=== PATIENT | female | born 1970 | race Caucasian/White ===

== ENCOUNTER 2016-12-08 09:08 | Emergency (ER) | payer SELFPAY ==
[2016-12-08 09:14] VITALS: BP 136/94
[2016-12-08] MEDS ORDERED: Ondansetron 4 MG/2 ML SDV IVPUSH STA ×2 (09:47→10:58)
[2016-12-08] MEDS ORDERED: Morphine 4 MG/ML Syringe IVPUSH ONE ×2 (09:47→10:58)
[2016-12-08] MEDS ORDERED: Sodium Chloride 0.9% 1,000 ML IV ONE (09:49)
[2016-12-08 09:52] LABS: CHLORIDE,CL 103 mEq/L (98-106); SODIUM,NA 141 mEq/L (136-145)
--- NOTE | 2016-12-08 09:59 | EDM.PDOC ---
[id number]: RLQ PAIN Time Seen by Provider: 12/08/16 09:46 Source of Information: Reports: Patient History Limitations: Reports: No Limitations - History of Present Illness INITIAL COMMENTS - FREE TEXT/NARRATIVE: This patient is a 46 year old female that presents to the ER. Patient reports that for the last 2 days she has had RUQ, RLQ abdominal pain. She reports that she was at work today and the pain became worse. She reports that the pain was so bad that she passed out. The patient reports that she has had some nausea and mild diarrhea. The patient reports that she has a history of Chrons and has not taken her prescribed steroids n about 2 months because of no insurance. The patient reports that she has also had a history of obstruction and intussusception. The patient reports this feels more like a Chrons flar up. The patient is fully alert and oriented. The patient denies wanting a CT of her head. Onset Date: 12/06/16 Duration: Day(s): (2) Location: Reports: Abdomen Front/Back Body Image: 1 - andino, tenderness. Severity: Moderate Improves with: Reports: None Worsens with: Reports: None Associated Symptoms: Reports: Loss of Appetite, Nausea/Vomiting, Syncope. Denies: Confusion, Chest Pain, Cough, cough w sputum, Diaphoresis, Fever/Chills , Headaches, Malaise, Rash, Seizure, Shortness of Breath, Weakness Right Lower Abdomen Pain Score (Numeric/FACES): 10 - Related Data Allergies Allergy/AdvReac Type Severity Reaction Status Date / Time diphenhydramine Allergy Hives Verified 12/08/16 09:10 [From Benadryl] ketorolac [From Toradol] Allergy Irritabilit Verified 12/08/16 09:10 y Home Meds: Home Meds Ferrous Sulfate [Iron] 325 mg PO TID 12/08/16 [History] LORazepam [Ativan] 0.5 mg PO Q6H PRN 12/08/16 [History] rOPINIRole HCl [Requip] 1 mg PO BEDTIME 12/08/16 [History] Past Medical History 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 History: Reports: Bowel Obstruction, Other (See Below) Other 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 History: 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: Psychiatric History: Reports: Anxiety - Past Surgical History GI Surgical History: Reports: Appendectomy, Cholecystectomy, Other (See Below) Other GI Surgeries/Procedures: BOWEL RESECTIONS X2, GASTRIC BYPASS Social & Family History - Family History Family Medical History: Noncontributory - Tobacco Use Smoking Status *Q: Current Every Day Smoker Years of Tobacco use: 20 Packs/Tins Daily: 1 - Caffeine Use Caffeine Use: Reports: Coffee - Recreational Drug Use Recreational Drug Use: No ED ROS GENERAL - Review of Systems Review Of Systems: See Below Constitutional: Reports: No Symptoms HEENT: Reports: No Symptoms Respiratory: Reports: No Symptoms Cardiovascular: Reports: No Symptoms Endocrine: Reports: No Symptoms GI/Abdominal: Reports: Abdominal Pain, Diarrhea, Nausea. Denies: Vomiting : Reports: No Symptoms Musculoskeletal: Reports: No Symptoms Skin: Reports: No Symptoms Neurological: Reports: Syncope (due to pain per patient. ). Denies: Headache Psychiatric: Reports: No Symptoms Hematologic/Lymphatic: Reports: No Symptoms Immunologic: Reports: No Symptoms ED EXAM, GI/ABD - Physical Exam Exam: See Below Exam Limited By: No Limitations General Appearance: Alert, WD/WN, No Apparent Distress Eyes: Bilateral: Normal Appearance, EOMI Ears: Normal External Exam, Normal Canal, Hearing Grossly Normal, Normal TMs Nose: Normal Inspection, Normal Mucosa, No Blood Throat/Mouth: Normal Inspection, Normal Lips, Normal Teeth, Normal Gums, Normal Oropharynx, Normal Voice, No Airway Compromise Head: Atraumatic, Normocephalic. No: Facial Swelling, Facial Tenderness, Sinus Tenderness Neck: Normal Inspection, Supple, Non-Tender, Full Range of Motion Respiratory/Chest: No Respiratory Distress, Lungs Clear, Normal Breath Sounds, No Accessory Muscle Use Cardiovascular: Normal Peripheral Pulses, Regular Rate, Rhythm, No Edema, No Gallop, No JVD, No Murmur, No Rub GI/Abdominal: Normal Bowel Sounds, Soft, No Organomegaly, No Distention, No Abnormal Bruit, No Mass, Pelvis Stable, Tenderness (RUQ, RLQ. ). No: Guarding, Rebound, Rigidity Back Exam: Normal Inspection, Full Range of Motion. No: CVA Tenderness (L), CVA Tenderness (R) Extremities: Normal Inspection, Normal Range of Motion, Non-Tender, No Pedal Edema, Normal Capillary Refill Neurological: Alert, Oriented, CN II-XII Intact, No Motor/Sensory Deficits Psychiatric: Normal Affect, Normal Mood Skin Exam: Warm, Dry, Intact, Normal Color, No Rash Lymphatic: No Adenopathy EKG INTERPRETATION EKG Date: 12/08/16 Time: 09:31 Rhythm: NSR Rate (beats/min): 61 [place]: normal P-wave: present QRS: normal ST-T: normal QT: normal Comparison: NA - no prior EKG Course - Vital Signs Last Recorded V/S: Last Vital Signs Temp 96.7 F 12/08/16 09:11 Pulse 73 12/08/16 09:11 Resp 18 12/08/16 09:11 BP 136/94 H 12/08/16 09:11 Pulse Ox 97 12/08/16 09:11 - Orders/Labs/Meds Labs: Laboratory Tests 12/08/16 12/08/16 12/08/16 Range/Units 09:22 09:22 09:22 WBC 11.2 H (5.0-10.0) 10^3/uL RBC 4.39 (4.00-5.50) 10^6/uL Hgb 11.1 L (12.0-16.0) g/dL Hct 35.1 L (37.0-47.0) % MCV 80.0 L (82.0-94.0) fL MCH 25.3 L (27.0-32.0) pg MCHC 31.6 L (33.0-38.0) g/dL RDW Coeff of Jessa 15.5 H (11.0-15.0) % Plt Count 362 (150-400) 10^3/uL Neut % (Auto) 56.9 (35-85) % Lymph % (Auto) 31.9 (10-55) % [place] % (Auto) 8.7 (0-16) % Eos % (Auto) 2.3 (0-5) % Baso % (Auto) 0.2 (0-3) % Neut # (Auto) 6.35 (1.80-7.00) 10^3/uL Lymph # (Auto) 3.56 (1.00-4.80) 10^3/uL [place] # (Auto) 0.97 H (0.00-0.80) 10^3/uL Eos # (Auto) 0.26 (0.00-0.45) 10^3/uL Baso # (Auto) 0.02 10^3/uL Sodium 141 (136-145) mEq/L Potassium 3.8 (3.5-5.0) mEq/L Chloride 103 (98-106) mEq/L Carbon Dioxide 30 (21-32) mmol/L BUN 12 (7-18) mg/dL Creatinine 0.7 (0.6-1.0) mg/dL Est Cr Clr Drug Dosing 88.56 mL/min Estimated GFR (MDRD) > 60 (>=60) mL/min Glucose 96 (75-99) mg/dL Calcium 8.3 L (8.4-10.1) mg/dL Total Bilirubin 0.3 (0.0-1.0) mg/dL AST 17 (15-37) U/L ALT 19 (12-78) U/L Alkaline Phosphatase 88 (46-116) U/L Creatine Kinase 83 (21-215) U/L Troponin I < 0.017 (0.00-0.06) ng/mL Total Protein 7.2 (6.4-8.2) g/dL Albumin 3.2 L (3.4-5.0) g/dL Urine Color (YELLOW) Urine Appearance (CLEAR) Urine pH (4.5-8.0) Ur Specific [place] (1.003-1.020) Urine Protein (NEGATIVE) mg/dL Urine Glucose (UA) (NEGATIVE) mg/dL Urine Ketones (NEGATIVE) mg/dL Urine Occult Blood (NEGATIVE) Urine Nitrite (NEGATIVE) Urine Bilirubin (NEGATIVE) Urine Urobilinogen (0.2-1.0) EU/dL Ur Leukocyte Esterase (NEGATIVE) Urine RBC (0-5) /HPF Urine WBC (0-5) /HPF Urinalysis Comment Urine HCG, Qual Negative 12/08/16 Range/Units 09:22 WBC (5.0-10.0) 10^3/uL RBC (4.00-5.50) 10^6/uL Hgb (12.0-16.0) g/dL Hct (37.0-47.0) % MCV (82.0-94.0) fL MCH (27.0-32.0) pg MCHC (33.0-38.0) g/dL RDW Coeff of Jessa (11.0-15.0) % Plt Count (150-400) 10^3/uL Neut % (Auto) (35-85) % Lymph % (Auto) (10-55) % [place] % (Auto) (0-16) % Eos % (Auto) (0-5) % Baso % (Auto) (0-3) % Neut # (Auto) (1.80-7.00) 10^3/uL Lymph # (Auto) (1.00-4.80) 10^3/uL [place] # (Auto) (0.00-0.80) 10^3/uL Eos # (Auto) (0.00-0.45) 10^3/uL Baso # (Auto) 10^3/uL Sodium (136-145) mEq/L Potassium (3.5-5.0) mEq/L Chloride (98-106) mEq/L Carbon Dioxide (21-32) mmol/L BUN (7-18) mg/dL Creatinine (0.6-1.0) mg/dL Est Cr Clr Drug Dosing mL/min Estimated GFR (MDRD) (>=60) mL/min Glucose (75-99) mg/dL Calcium (8.4-10.1) mg/dL Total Bilirubin (0.0-1.0) mg/dL AST (15-37) U/L ALT (12-78) U/L Alkaline Phosphatase (46-116) U/L Creatine Kinase (21-215) U/L Troponin I (0.00-0.06) ng/mL Total Protein (6.4-8.2) g/dL Albumin (3.4-5.0) g/dL Urine Color Yellow (YELLOW) Urine Appearance Clear (CLEAR) Urine pH 6.0 (4.5-8.0) Ur Specific [place] 1.023 H (1.003-1.020) Urine Protein Negative (NEGATIVE) mg/dL Urine Glucose (UA) Negative (NEGATIVE) mg/dL Urine Ketones Negative (NEGATIVE) mg/dL Urine Occult Blood Negative (NEGATIVE) Urine Nitrite Negative (NEGATIVE) Urine Bilirubin Negative (NEGATIVE) Urine Urobilinogen 1.0 (0.2-1.0) EU/dL Ur Leukocyte Esterase Negative (NEGATIVE) Urine RBC Not seen (0-5) /HPF Urine WBC 0-5 (0-5) /HPF Urinalysis Comment Urine HCG, Qual Meds: Medications Discontinued Medications Generic Name Dose Route Start Last Admin Trade Name Adele PRN Reason Stop Dose Admin Hydrocodone Bitart/Acetaminophen 3 packet 12/08/16 10:59 12/08/16 11:19 Take Home: Acetaminophen/Hydrocod, 2 Tab Pack PO 12/08/16 11:00 3 packet ONETIME ONE Administration Sodium Chloride 1,000 mls @ 1,000 mls/hr 12/08/16 09:49 12/08/16 09:53 Normal Saline IV 12/08/16 10:48 1,000 mls/hr .BOLUS ONE Administration Iopamidol 100 ml 12/08/16 10:09 12/08/16 10:21 Isovue-300 (61%) IVPUSH 12/08/16 10:10 100 ml ONETIME ONE Administration Methylprednisolone Sodium Succinate 62.5 mg 12/08/16 10:58 12/08/16 11:12 Solu-Medrol IVPUSH 12/08/16 10:59 62.5 mg NOW STA Administration Morphine Sulfate 4 mg 12/08/16 09:47 12/08/16 09:52 Morphine IVPUSH 12/08/16 09:48 4 mg ONETIME ONE Administration Morphine Sulfate 4 mg 12/08/16 10:58 12/08/16 11:11 Morphine IVPUSH 12/08/16 10:59 4 mg ONETIME ONE Administration Ondansetron HCl 4 mg 12/08/16 09:47 12/08/16 09:52 Zofran IVPUSH 12/08/16 09:48 4 mg NOW STA Administration Ondansetron HCl 4 mg 12/08/16 10:58 12/08/16 11:11 Zofran IVPUSH 12/08/16 10:59 4 mg NOW STA Administration - Radiology Interpretation Free Text/Narrative:: Abd/Pelvis with contrast: Discussed with radiologist; no acute findings. - Re-Assessments/Exams Free Text/Narrative Re-Assessment/Exam: 12/08/16 10:58 I will give the patient steroids since she has not had them due to not filling for Chrones. Departure - Departure Time of Disposition: 10:53 Disposition: Home, Self-Care 01 Condition: good Clinical Impression: Abdominal pain Qualifiers: Abdominal location: right upper quadrant Qualified Code(s): R10.11 - Right upper quadrant pain - Discharge Information Instructions: Abdominal Pain, Adult, [id number] Referrals: Mando Ruiz MD [Family Provider] - Forms: ED Department Discharge Additional Instructions: Followup with your primary care provider Return to the ER for worsening of condition or any emergent concerns Increase fluids Prednisone 20mg 1 pill twice a day for 5 days #10 no refill [place] 5/325mg 1-2 pills every 4-6 hours as needed for pain #6 Take Home - Assessment/Plan Plan: PLEASE SEE RN NOTE FOR PFSH.
[2016-12-08] MEDS ORDERED: Acetaminophen/HYDROcodone 325-5 MG Tab PO ONE (10:00)
[2016-12-08] MEDS ORDERED: Iopamidol 612 MG/ML 100 ML Bottle IVPUSH ONE (10:09)
[2016-12-08] MEDS ORDERED: methylPREDNISolone Sodium Succinate 125 MG/2 ML SDV IVPUSH STA (10:58)
[2016-12-08] MEDS ORDERED: Take Home: Acetaminophen/HYDROcodone 325-5 MG, 2 Tab Pack PO ONE (10:59)
== END 2016-12-08 11:40 | disposition home or self-care (01) ==
LOC: CC.ED 09:08
DX: R10.11 Right upper quadrant pain (principal); F41.9 Anxiety disorder, unspecified; F17.210 Nicotine dependence, cigarettes, uncomplicated; Z88.8 Allergy status to other drugs, medicaments and biological substances; Z90.49 Acquired absence of other specified parts of digestive tract; Z98.84 Bariatric surgery status; Z98.890 Other specified postprocedural states
CPT/HCPCS: 36415; 74177; 80053; 81001; 81025; 82550; 84484; 85025; 93005; 96361; 96374; 96375; 96376; 99284; A9270; J2270; J2405; J2930; J7030; Q9967

== ENCOUNTER 2017-03-23 16:57 | Emergency (ER) | payer BC ==
[2017-03-23] MEDS ORDERED: traMADol 50 MG Tab PO ONE (16:58)
--- NOTE | 2017-03-23 17:16 | EDM.PDOC ---
ED HPI GENERAL MEDICAL PROBLEM - General Chief Complaint: Abdominal Pain Stated Complaint: "Having abdominal Pain" Time Seen by Provider: 03/23/17 17:15 Source of Information: Reports: Patient History Limitations: Reports: No Limitations - History of Present Illness INITIAL COMMENTS - FREE TEXT/NARRATIVE: Patient states RLQ for 1 week with diarrhea and pain. She states she noted some dark stools with bright red bleeding which resolved after 3 days. She affirms food makes pain worse nothing help make it better. 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 She thus presented for evaluation after co worker brought her to ER. Patient states long history of GI problems including Gastric Bypass in 2006 followed by Intussception x2 and resection of Large bowel for Crohns in 2009. She states she had been seeing GI specilaty but since moving has not followed up with GI Specialty. Current MD in [place] is Dr. Ruiz. 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 TECHNICIAN: Reports: Home Treatments Right Lower Anterior Abdomen Pain Score (Numeric/FACES): 8 - Related Data Allergies Allergy/AdvReac Type Severity Reaction Status Date / Time diphenhydramine Allergy Hives Verified 03/23/17 18:29 [From Benadryl] ketorolac [From Toradol] Allergy Irritabilit Verified 03/23/17 18:29 y Home Meds: Home Meds Ferrous Sulfate [Iron] 325 mg PO TID 12/08/16 [History] LORazepam [Ativan] 0.5 mg PO Q6H PRN 12/08/16 [History] rOPINIRole HCl [Requip] 1 mg PO BEDTIME 12/08/16 [History] Past Medical History 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 History: Reports: Bowel Obstruction, Inflammatory Bowel Disease , PUD, Other (See Below) Other 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 History: CHROHNS Genitourinary History: Reports: None 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: 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, Polycystic Ovaries, : 2 Para: 2 LMP (Approximate): Menopausal (Age 44 years) Musculoskeletal History: Reports: None Neurological History: Reports: None Psychiatric History: Reports: Anxiety Endocrine/Metabolic History: Reports: None, Other (See Below) (Obesity with gastric Bypass surgery in 2007) Hematologic History: Reports: Iron Deficiency - Past Surgical History GI Surgical History: Reports: Appendectomy, Cholecystectomy, Other (See Below) Other GI Surgeries/Procedures: BOWEL RESECTIONS X2, GASTRIC BYPASS Social & Family History - Family History Family Medical History: Noncontributory - Tobacco Use Smoking Status *Q: Current Every Day Smoker Years of Tobacco use: 20 Packs/Tins Daily: 1 - Caffeine Use Caffeine Use: Reports: Coffee - Alcohol Use Alcohol Use Frequency: Rarely - Recreational Drug Use Recreational Drug Use: No - Living Situation & Occupation Occupation: Employed ED ROS GENERAL - Review of Systems Review Of Systems: See Below Constitutional: Reports: Weakness, Fatigue, Night Sweats HEENT: Reports: Other (Tinnitis) Respiratory: Reports: No Symptoms Cardiovascular: Reports: No Symptoms Endocrine: Reports: No Symptoms GI/Abdominal: Reports: Abdominal Pain, Bloody Stool, Diarrhea, Distension, Melena, Nausea : Reports: No Symptoms Musculoskeletal: Reports: No Symptoms Skin: Reports: No Symptoms Neurological: Reports: No Symptoms Psychiatric: Reports: Anxiety Hematologic/Lymphatic: Reports: Anemia, Other (Bypass surgery) Immunologic: Reports: No Symptoms ED EXAM, GI/ABD - Physical Exam Exam: See Below Exam Limited By: No Limitations General Appearance: Alert, WD/WN, Anxious, Moderate Distress Eyes: Bilateral: Normal Appearance, EOMI Ears: Normal External Exam, Normal Canal, Hearing Grossly Normal, Normal TMs Nose: Normal Inspection, Normal Mucosa, No Blood Throat/Mouth: Normal Inspection, Normal Lips, Normal Teeth, Normal Gums, Normal Oropharynx, Normal Voice, No Airway Compromise Head: Atraumatic, Normocephalic Neck: Normal Inspection, Supple, Non-Tender, Full Range of Motion Respiratory/Chest: No Respiratory Distress, Lungs Clear, Normal Breath Sounds, No Accessory Muscle Use, Chest Non-Tender Cardiovascular: Normal Peripheral Pulses, Regular Rate, Rhythm, No Edema, No JVD GI/Abdominal Exam: Normal Bowel Sounds, Distended, Tender. No: Rebound, Hernia , Mass, Hepatomegaly (Female) Exam: Deferred Rectal (Female) Exam: Deferred Back Exam: Normal Inspection, Full Range of Motion Extremities: Normal Inspection, Normal Range of Motion, Non-Tender, No Pedal Edema, Normal Capillary Refill Neurological: Alert, Oriented, CN II-XII Intact, Normal Cognition, Normal Gait, Normal Reflexes, No Motor/Sensory Deficits Psychiatric: Anxious, Tearful Skin Exam: Warm, Dry, Intact, Normal Color Lymphatic: No Adenopathy Course - Vital Signs Last Recorded V/S: Last Vital Signs Temp 36.3 C 03/23/17 18:25 Pulse 65 03/23/17 18:25 Resp 20 03/23/17 18:25 BP 130/98 H 03/23/17 18:25 Pulse Ox 98 03/23/17 18:25 - Orders/Labs/Meds Orders: Active Orders 24 hr Category Date Time Status Abdomen Pelvis w Cont [CT] Stat Exams 03/23/17 17:13 Taken STOOL CULTURE [MREF] Stat Lab 03/23/17 19:17 Uncollected Promethazine [Phenergan] 25 mg Med 03/23/17 18:11 Active Sodium Chloride 0.9% [Normal Saline] 50 ml IV Q6H Sodium Chloride 0.9% [Normal Saline] 1,000 ml Med 03/23/17 18:00 Active IV ASDIRECTED Medication Orders Sodium Chloride (Normal Saline) 1,000 mls @ 150 mls/hr IV ASDIRECTED NIKKO Last Admin: 03/23/17 18:01 Dose: 150 mls/hr Promethazine HCl 25 mg/ Sodium (Chloride) 51 mls @ 100 mls/hr IV Q6H PRN PRN Reason: Nausea Last Admin: 03/23/17 18:19 Dose: 100 mls/hr Labs: Laboratory Tests 03/23/17 03/23/17 03/23/17 Range/Units 17:45 17:45 17:54 WBC 9.3 (5.0-10.0) 10^3/uL RBC 4.92 (4.00-5.50) 10^6/uL Hgb 12.0 (12.0-16.0) g/dL Hct 37.7 (37.0-47.0) % MCV 76.6 L (82.0-94.0) fL MCH 24.4 L (27.0-32.0) pg MCHC 31.8 L (33.0-38.0) g/dL RDW Coeff of Jessa 17.2 H (11.0-15.0) % Plt Count 281 (150-400) 10^3/uL Neut % (Auto) 52.8 (35-85) % Lymph % (Auto) 35.4 (10-55) % [place] % (Auto) 10.2 (0-16) % Eos % (Auto) 1.4 (0-5) % Baso % (Auto) 0.2 (0-3) % Neut # (Auto) 4.93 (1.80-7.00) 10^3/uL Lymph # (Auto) 3.30 (1.00-4.80) 10^3/uL [place] # (Auto) 0.95 H (0.00-0.80) 10^3/uL Eos # (Auto) 0.13 (0.00-0.45) 10^3/uL Baso # (Auto) 0.02 10^3/uL Sodium 141 (136-145) mEq/L Potassium 3.9 (3.5-5.0) mEq/L Chloride 103 (98-106) mEq/L Carbon Dioxide 28 (21-32) mmol/L BUN 7 (7-18) mg/dL Creatinine 0.6 (0.6-1.0) mg/dL Est Cr Clr Drug Dosing TNP Estimated GFR (MDRD) > 60 (>=60) mL/min Glucose 84 (75-99) mg/dL Calcium 8.9 (8.4-10.1) mg/dL Total Bilirubin 0.3 (0.0-1.0) mg/dL AST 16 (15-37) U/L ALT 18 (12-78) U/L Alkaline Phosphatase 75 (46-116) U/L C-Reactive Protein 0.5 (0.2-0.8) mg/dL Total Protein 7.2 (6.4-8.2) g/dL Albumin 3.3 L (3.4-5.0) g/dL Amylase 27 (25-115) U/L Urine Color Yellow (YELLOW) Urine Appearance Clear (CLEAR) Urine pH 6.0 (4.5-8.0) Ur Specific [place] 1.010 (1.003-1.020) Urine Protein Negative (NEGATIVE) mg/dL Urine Glucose (UA) Negative (NEGATIVE) mg/dL Urine Ketones Negative (NEGATIVE) mg/dL Urine Occult Blood Negative (NEGATIVE) Urine Nitrite Negative (NEGATIVE) Urine Bilirubin Negative (NEGATIVE) Urine Urobilinogen 0.2 (0.2-1.0) EU/dL Ur Leukocyte Esterase Negative (NEGATIVE) Urine RBC Not seen (0-5) /HPF Urine WBC 0-5 (0-5) /HPF Ur Squamous Epith Cells Occasional H (NOT SEEN) /HPF Meds: Medications Generic Name Dose Route Start Last Admin Trade Name Freq PRN Reason Stop Dose Admin Sodium Chloride 1,000 mls @ 150 mls/hr 03/23/17 18:00 03/23/17 18:01 Normal Saline IV 150 mls/hr ASDIRECTED NIKKO Administration Promethazine HCl 25 mg/ Sodium 51 mls @ 100 mls/hr 03/23/17 18:11 03/23/17 18 :19 Chloride IV 100 mls/hr Q6H PRN Administration Nausea Discontinued Medications Generic Name Dose Route Start Last Admin Trade Name Freq PRN Reason Stop Dose Admin Al Hydroxide/Mg Hydroxide 30 ml 03/23/17 20:11 03/23/17 20:16 Mag-Al Plus PO 03/23/17 20:12 30 ml ONETIME ONE Administration Hydromorphone HCl 2 mg 03/23/17 19:05 03/23/17 19:18 Dilaudid IVPUSH 03/23/17 19:06 2 mg ONETIME ONE Administration Hydromorphone HCl 1 mg 03/23/17 21:14 03/23/17 21:25 Dilaudid IVPUSH 03/23/17 21:15 1 mg ONETIME ONE Administration Sodium Chloride Confirm 03/23/17 18:08 03/23/17 18:19 Normal Saline Administered 03/23/17 18:09 50 ml Dose Administration 50 mls @ as directed .ROUTE .STK-MED ONE Iopamidol 100 ml 03/23/17 17:51 03/23/17 17:59 Isovue-300 (61%) IVPUSH 03/23/17 17:52 100 ml ONETIME ONE Administration Pantoprazole Sodium 40 mg 03/23/17 20:37 03/23/17 21:26 Protonix Iv IVPUSH 03/23/17 20:38 40 mg ONETIME ONE Administration Promethazine HCl Confirm 03/23/17 18:07 03/23/17 18:19 Phenergan Administered 03/23/17 18:08 25 mg Dose Administration 25 mg .ROUTE .STK-MED ONE Tramadol HCl 1 packet 03/24/17 00:47 Take Home: Tramadol 50 Mg, 4 Tab Pack PO 03/24/17 00:48 ONETIME ONE Departure - Departure Time of Disposition: 00:54 Disposition: Home, Self-Care 01 Condition: Good Clinical Impression: Abdominal pain, Gastroenteritis - Discharge Information Referrals: PCP,Unknown [Primary Care Provider] - Forms: ED Department Discharge Additional Instructions: Observation extended ER. Ice chips advance to clear liquids as tolerated. F/U PCP in 2 days for stool culture results or prn increased pain diarrhea or fever. 0030-Discharge to home Clear liquids and advance as tolerated. Advised call PCP in am for F/U. Tramadol 50 mg po every 6-8 hours prn pain. Take home Sheet reviewed. MLP Sign Off - Signature Requirements MLP Sign Off: No - Problem List & Annotations (1) Abdominal pain SNOMED Code(s): 79937973 Code(s): R10.9 - UNSPECIFIED ABDOMINAL PAIN Status: Acute Current Visit: No Qualifiers: Abdominal location: lower abdomen, unspecified Qualified Code(s): R10.30 - Lower abdominal pain, unspecified - My Orders Last 24 Hours: My Active Orders 03/23/17 17:13 Abdomen Pelvis w Cont [CT] Stat 03/23/17 18:00 Sodium Chloride 0.9% [Normal Saline] 1,000 ml IV ASDIRECTED 03/23/17 18:11 Promethazine [Phenergan] 25 mg Sodium Chloride 0.9% [Normal Saline] 50 ml IV Q6H 03/23/17 19:17 STOOL CULTURE [MREF] Stat - Assessment/Plan Last 24 Hours: My Active Orders 03/23/17 17:13 Abdomen Pelvis w Cont [CT] Stat 03/23/17 18:00 Sodium Chloride 0.9% [Normal Saline] 1,000 ml IV ASDIRECTED 03/23/17 18:11 Promethazine [Phenergan] 25 mg Sodium Chloride 0.9% [Normal Saline] 50 ml IV Q6H 03/23/17 19:17 STOOL CULTURE [MREF] Stat Assessment:: Abdominal Pain Nausea and vomiting History of Crohns 2000 -IVF NS @ 150 ml hour with IV Dilaudid 2 mg and Phenergan 25 mg IV placed in Extended ER observation. Up to BR stool specimen to lab for C and S. Patient much more comfortable. Resting in bed.Ice chips tolerated. 2100-Radiology calls and reports no significant abnormality. Patient notified- advised will continue IVF and discharge @0030 if continued relief from abdominal pain. Laboratory testing unremarkable. Plan: Observation extended ER. Ice chips advance to clear liquids as tolerated. F/U PCP in 2 days for stool culture results or prn increased pain diarrhea or fever. 0030-Discharge to home Clear liquids and advance as tolerated. Advised call PCP in am for F/U. Tramadol 50 mg po every 6-8 hours prn pain. Take home Sheet reviewed.
[2017-03-23] MEDS ORDERED: Iopamidol 612 MG/ML 100 ML Bottle IVPUSH ONE (17:51)
[2017-03-23] MEDS ORDERED: Sodium Chloride 0.9% 1,000 ML IV SCH (18:00)
[2017-03-23 18:03] LABS: CHLORIDE,CL 103 mEq/L (98-106); SODIUM,NA 141 mEq/L (136-145)
[2017-03-23] MEDS ORDERED: Promethazine 25 MG/ML SDV ONE (18:07)
[2017-03-23] MEDS ORDERED: Sodium Chloride 0.9% 50 ML ONE (18:08)
[2017-03-23] MEDS ORDERED: Promethazine 25 MG in Sodium Chloride 0.9% 50 ML IV PRN (18:11)
[2017-03-23 18:26] VITALS: BP 130/98
[2017-03-23] MEDS ORDERED: HYDROmorphone 1 MG/ML Syringe IVPUSH ONE ×2 (19:05→21:14)
[2017-03-23] MEDS ORDERED: Aluminum Hydroxide/Magnesium Hydroxide/Simethicone Susp 30 ML Cup PO ONE (20:11)
[2017-03-23] MEDS ORDERED: Pantoprazole 40 MG Vial IVPUSH ONE (20:37)
[2017-03-24] MEDS ORDERED: Take Home: traMADol 50 MG, 4 Tab Pack PO ONE (00:47)
== END 2017-03-24 01:01 | disposition home or self-care (01) ==
LOC: CC.ED 16:57
DX: K52.9 Noninfective gastroenteritis and colitis, unspecified (principal); F41.9 Anxiety disorder, unspecified; F17.210 Nicotine dependence, cigarettes, uncomplicated; E66.9 Obesity, unspecified; Z88.6 Allergy status to analgesic agent; Z88.8 Allergy status to other drugs, medicaments and biological substances; Z79.899 Other long term (current) drug therapy; Z90.49 Acquired absence of other specified parts of digestive tract; Z68.25 Body mass index [BMI] 25.0-25.9, adult
CPT/HCPCS: 36415; 74177; 80053; 81001; 82150; 85025; 86140; 96361; 96365; 96375; 99284; A9270; C9113; J1170; J2550; J7030; J7050; Q9967

== ENCOUNTER 2017-04-03 17:35 | Emergency (ER) | payer BC ==
[2017-04-03] MEDS ORDERED: Acetaminophen/HYDROcodone 325-5 MG Tab PO ONE (17:36)
[2017-04-03 18:00] VITALS: BP 159/86
[2017-04-03 18:19] LABS: CHLORIDE,CL 102 mEq/L (98-106); SODIUM,NA 137 mEq/L (136-145)
[2017-04-03] MEDS ORDERED: Take Home: Acetaminophen/HYDROcodone 325-5 MG, 2 Tab Pack PO ONE (18:32)
--- NOTE | 2017-04-03 18:38 | EDM.PDOC ---
ED HPI GENERAL MEDICAL PROBLEM - General Chief Complaint: Abdominal Pain Stated Complaint: abd pain Time Seen by Provider: 04/03/17 18:05 Source of Information: Reports: Patient History Limitations: Reports: No Limitations - History of Present Illness INITIAL COMMENTS - FREE TEXT/NARRATIVE: Has had history of crohn's for about 4 years and was diagnosed in [place] and was treated with budesinide and another med that she can't remember. Had been doing well on it. Then moved back to the area and has been off of these for about a year and has started to get the pain back again. Has been on courses of prednisone in decreasing doses. Pain is getting worse. Pain does come and go. States that the tramadol doesn't help her any. Would like something stronger for pain until she sees specialist. No fever noted. Can point to the area of the right lower quadrant that hurts and then the pain will radiate across the abdomen. Onset: Gradual Location: Reports: Abdomen Quality: Reports: Sharp, Stabbing Severity: Severe Abdomen Pain Score (Numeric/FACES): 7 - Related Data Allergies Allergy/AdvReac Type Severity Reaction Status Date / Time diphenhydramine Allergy Hives Verified 04/03/17 18:06 [From Benadryl] ketorolac [From Toradol] Allergy Irritabilit Verified 04/03/17 18:06 y Home Meds: Home Meds Ferrous Sulfate [Iron] 325 mg PO TID 12/08/16 [History] LORazepam [Ativan] 0.5 mg PO Q6H PRN 12/08/16 [History] rOPINIRole HCl [Requip] 1 mg PO BEDTIME 12/08/16 [History] Prednisone [IMW: predniSONE] 40 mg PO WITHBREAKFAST 04/03/17 [History] Past Medical History 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 History: Reports: Bowel Obstruction, Inflammatory Bowel Disease , PUD, Other (See Below) Other 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 History: CHROHNS Genitourinary History: Reports: None 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: 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, Polycystic Ovaries, Musculoskeletal History: Reports: None Neurological History: Reports: None Psychiatric History: Reports: Anxiety Endocrine/Metabolic History: Reports: Other (See Below) Hematologic History: Reports: Iron Deficiency - Past Surgical History GI Surgical History: Reports: Appendectomy, Cholecystectomy, Other (See Below) Other GI Surgeries/Procedures: BOWEL RESECTIONS X2, GASTRIC BYPASS Social & Family History - Family History Family Medical History: Noncontributory - Tobacco Use Smoking Status *Q: Current Every Day Smoker Years of Tobacco use: 20 Packs/Tins Daily: 1 - Caffeine Use Caffeine Use: Reports: Coffee - Recreational Drug Use Recreational Drug Use: No - Living Situation & Occupation Occupation: Employed ED ROS GENERAL - Review of Systems Review Of Systems: See Below Constitutional: Denies: Fever, Chills Respiratory: Reports: No Symptoms Cardiovascular: Reports: No Symptoms GI/Abdominal: Reports: Abdominal Pain, Diarrhea. Denies: Vomiting : Reports: No Symptoms Musculoskeletal: Reports: No Symptoms Skin: Reports: No Symptoms Neurological: Reports: No Symptoms ED EXAM, GI/ABD - Physical Exam Exam: See Below Exam Limited By: No Limitations General Appearance: Alert, Severe Distress Throat/Mouth: Normal Oropharynx Head: Atraumatic Neck: Normal Inspection, Supple, Non-Tender Respiratory/Chest: No Respiratory Distress, Lungs Clear, Normal Breath Sounds Cardiovascular: Regular Rate, Rhythm GI/Abdominal Exam: Normal Bowel Sounds, Soft Extremities: No Pedal Edema Neurological: Alert, Oriented Skin Exam: Warm, Dry, Intact Course - Vital Signs Last Recorded V/S: Last Vital Signs Temp 98.1 F 04/03/17 17:43 Pulse 72 04/03/17 17:43 Resp 18 04/03/17 17:43 BP 159/86 H 04/03/17 17:43 Pulse Ox 98 04/03/17 17:43 - Orders/Labs/Meds Labs: Laboratory Tests 04/03/17 04/03/17 04/03/17 Range/Units 18:05 18:05 18:05 WBC 12.8 H (5.0-10.0) 10^3/uL RBC 5.03 (4.00-5.50) 10^6/uL Hgb 12.3 (12.0-16.0) g/dL Hct 39.0 (37.0-47.0) % MCV 77.5 L (82.0-94.0) fL MCH 24.5 L (27.0-32.0) pg MCHC 31.5 L (33.0-38.0) g/dL RDW Coeff of Jessa 17.7 H (11.0-15.0) % Plt Count 370 (150-400) 10^3/uL Neut % (Auto) 88.7 H (35-85) % Lymph % (Auto) 10.2 (10-55) % [place] % (Auto) 0.9 (0-16) % Eos % (Auto) 0.1 (0-5) % Baso % (Auto) 0.1 (0-3) % Neut # (Auto) 11.38 H (1.80-7.00) 10^3/uL Lymph # (Auto) 1.31 (1.00-4.80) 10^3/uL [place] # (Auto) 0.11 (0.00-0.80) 10^3/uL Eos # (Auto) 0.01 (0.00-0.45) 10^3/uL Baso # (Auto) 0.01 10^3/uL Sodium 137 (136-145) mEq/L Potassium 4.8 D (3.5-5.0) mEq/L Chloride 102 (98-106) mEq/L Carbon Dioxide 28 (21-32) mmol/L BUN 9 (7-18) mg/dL Creatinine 0.7 (0.6-1.0) mg/dL Est Cr Clr Drug Dosing TNP Estimated GFR (MDRD) > 60 (>=60) mL/min Glucose 121 H D (75-99) mg/dL Calcium 9.1 (8.4-10.1) mg/dL C-Reactive Protein < 0.2 L (0.2-0.8) mg/dL Urine Color Light yellow (YELLOW) Urine Appearance Clear (CLEAR) Urine pH 7.0 (4.5-8.0) Ur Specific [place] 1.015 (1.003-1.020) Urine Protein Negative (NEGATIVE) mg/dL Urine Glucose (UA) Negative (NEGATIVE) mg/dL Urine Ketones Negative (NEGATIVE) mg/dL Urine Occult Blood Negative (NEGATIVE) Urine Nitrite Negative (NEGATIVE) Urine Bilirubin Negative (NEGATIVE) Urine Urobilinogen 0.2 (0.2-1.0) EU/dL Ur Leukocyte Esterase Negative (NEGATIVE) Urine RBC Not seen (0-5) /HPF Urine WBC Not seen (0-5) /HPF Ur Epithelial Cells Occasional H (NOT SEEN) /HPF Departure - Departure Time of Disposition: 18:33 Disposition: Home, Self-Care 01 Condition: Good Clinical Impression: Acute Crohn's disease Qualifiers: Digestive disease complication type: other complication Qualified Code(s): K50.918 - Crohn's disease, unspecified, with other complication - Discharge Information Referrals: Provider,Unknown [Primary Care Provider] - Forms: ED Department Discharge Additional Instructions: Use norco 1 tab every 4 hours as needed only for the first few days. then use the tramadol again. Avoid constipation with the pain meds. Start budesonide 9 mg daily in the am when prescription is filled. Stop the prednisone while on the budesonide follow up with GI specialist as scheduled on the in [place]. - Problem List & Annotations (1) Acute Crohn's disease SNOMED Code(s): 91932503 Code(s): K50.90 - CROHN'S DISEASE, UNSPECIFIED, WITHOUT COMPLICATIONS Status: Acute Current Visit: Yes Qualifiers: Qualified Code(s): K50.918 - Crohn's disease, unspecified, with other complication - Problem List Review Problem List Initiated/Reviewed/Updated: Yes
== END 2017-04-03 18:55 | disposition home or self-care (01) ==
LOC: CC.ED 17:35
DX: K50.918 Crohn's disease, unspecified, with other complication (principal); Z88.8 Allergy status to other drugs, medicaments and biological substances; Z90.49 Acquired absence of other specified parts of digestive tract; Z98.84 Bariatric surgery status
CPT/HCPCS: 36415; 80048; 81001; 85025; 86140; 99284; A9270

== ENCOUNTER 2017-05-28 19:05 | Emergency (ER) | payer BC ==
[2017-05-28] MEDS ORDERED: traMADol 50 MG Tab PO ONE (19:06)
[2017-05-28 19:29] VITALS: BP 146/86
[2017-05-28 19:39] LABS: CHLORIDE,CL 104 mEq/L (98-106); SODIUM,NA 139 mEq/L (136-145)
[2017-05-28] MEDS ORDERED: Take Home: traMADol 50 MG, 4 Tab Pack PO ONE (20:02)
--- NOTE | 2017-05-28 20:05 | EDM.PDOC ---
ED HPI GENERAL MEDICAL PROBLEM - General Chief Complaint: General Stated Complaint: abd pain Time Seen by Provider: 05/28/17 19:45 Source of Information: Reports: Patient History Limitations: Reports: No Limitations - History of Present Illness INITIAL COMMENTS - FREE TEXT/NARRATIVE: States that she has been having increase in right lower abdominal pain since she had her colonoscopy. She had a soft formed stool earlier today without any blood noted. Has not had any fever. Does feel bloated and feels like there is pressure up under rib cage. Has been very nauseated but not vomiting. Did eat scrambled eggs for dinner earlier and they stayed down. "I can feel the gas moving around" Had a colonoscopy about 2 weeks ago which was reported to be "better than expected" Biopsy were taken and she reports they were normal. Recently started on meds from the GI specialist and she states they seemed to be doing well until now. Onset: Gradual Location: Reports: Abdomen Quality: Reports: Pressure Worsens with: Reports: Movement Abdomen Pain Score (Numeric/FACES): 8 - Related Data Allergies Allergy/AdvReac Type Severity Reaction Status Date / Time diphenhydramine Allergy Hives Verified 05/28/17 19:11 [From Benadryl] ketorolac [From Toradol] Allergy Irritabilit Verified 05/28/17 19:11 y Home Meds: Home Meds Ferrous Sulfate [Iron] 325 mg PO TID 12/08/16 [History] rOPINIRole HCl [Requip] 1 mg PO BEDTIME 12/08/16 [History] Budesonide [Budesonide EC] 9 mg PO DAILY 05/28/17 [History] Ondansetron [Zofran ODT] 4 mg PO Q4H PRN 05/28/17 [History] azaTHIOprine [Azathioprine] 150 mg PO DAILY 05/28/17 [History] Past Medical History 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 History: Reports: Bowel Obstruction, Inflammatory Bowel Disease , PUD, Other (See Below) Other 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 History: CHROHNS Genitourinary History: Reports: None 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, Polycystic Ovaries, Musculoskeletal History: Reports: None Neurological History: Reports: None Psychiatric History: Reports: Anxiety Endocrine/Metabolic History: Reports: Other (See Below) Hematologic History: Reports: Iron Deficiency - Past Surgical History GI Surgical History: Reports: Appendectomy, Cholecystectomy, Other (See Below) Other GI Surgeries/Procedures: BOWEL RESECTIONS X2, GASTRIC BYPASS Social & Family History - Family History Family Medical History: Noncontributory - Tobacco Use Smoking Status *Q: Current Every Day Smoker Years of Tobacco use: 20 Packs/Tins Daily: 1 - Caffeine Use Caffeine Use: Reports: Coffee - Recreational Drug Use Recreational Drug Use: No - Living Situation & Occupation Occupation: Employed ED ROS GENERAL - Review of Systems Review Of Systems: See Below Constitutional: Denies: Fever, Chills, Weight Loss HEENT: Reports: No Symptoms Respiratory: Reports: No Symptoms Cardiovascular: Reports: No Symptoms GI/Abdominal: Reports: Abdominal Pain, Decreased Appetite, Flatus. Denies: Black Stool, Bloody Stool, Constipation, Diarrhea : Reports: No Symptoms Musculoskeletal: Reports: No Symptoms Skin: Reports: No Symptoms Neurological: Reports: No Symptoms ED EXAM, GENERAL - Physical Exam Exam: See Below Exam Limited By: No Limitations General Appearance: Alert, Moderate Distress Ears: Normal External Exam, Normal TMs Respiratory/Chest: No Respiratory Distress, Lungs Clear, Normal Breath Sounds Cardiovascular: Regular Rate, Rhythm, No Edema GI/Abdominal: Normal Bowel Sounds, Tender (diffusely tender to palpation. No guarding noted. slightly distended. ) Back Exam: Normal Inspection Neurological: Alert, Oriented Skin Exam: Warm, Dry, Intact Course - Vital Signs Last Recorded V/S: Last Vital Signs Temp 97.3 F 05/28/17 19:14 Pulse 72 05/28/17 19:14 Resp 20 05/28/17 19:14 BP 146/86 H 05/28/17 19:14 Pulse Ox 97 05/28/17 19:14 - Orders/Labs/Meds Labs: Laboratory Tests 05/28/17 05/28/17 05/28/17 Range/Units 19:19 19:19 19:19 WBC 12.5 H (5.0-10.0) 10^3/uL RBC 4.39 (4.00-5.50) 10^6/uL Hgb 11.2 L (12.0-16.0) g/dL Hct 35.0 L (37.0-47.0) % MCV 79.7 L (82.0-94.0) fL MCH 25.5 L (27.0-32.0) pg MCHC 32.0 L (33.0-38.0) g/dL RDW Coeff of Jessa 17.6 H (11.0-15.0) % Plt Count 321 (150-400) 10^3/uL Neut % (Auto) 62.0 (35-85) % Lymph % (Auto) 30.9 (10-55) % [place] % (Auto) 5.5 (0-16) % Eos % (Auto) 1.4 (0-5) % Baso % (Auto) 0.2 (0-3) % Neut # (Auto) 7.73 H (1.80-7.00) 10^3/uL Lymph # (Auto) 3.86 (1.00-4.80) 10^3/uL [place] # (Auto) 0.69 (0.00-0.80) 10^3/uL Eos # (Auto) 0.18 (0.00-0.45) 10^3/uL Baso # (Auto) 0.02 10^3/uL Sodium 139 (136-145) mEq/L Potassium 3.7 D (3.5-5.0) mEq/L Chloride 104 (98-106) mEq/L Carbon Dioxide 28 (21-32) mmol/L BUN 9 (7-18) mg/dL Creatinine 0.6 (0.6-1.0) mg/dL Est Cr Clr Drug Dosing 103.32 mL/min Estimated GFR (MDRD) > 60 (>=60) mL/min Glucose 89 D (75-99) mg/dL Calcium 8.7 (8.4-10.1) mg/dL Urine Color Yellow (YELLOW) Urine Appearance Clear (CLEAR) Urine pH 6.0 (4.5-8.0) Ur Specific [place] 1.020 (1.003-1.020) Urine Protein Negative (NEGATIVE) mg/dL Urine Glucose (UA) Negative (NEGATIVE) mg/dL Urine Ketones Negative (NEGATIVE) mg/dL Urine Occult Blood Negative (NEGATIVE) Urine Nitrite Negative (NEGATIVE) Urine Bilirubin Negative (NEGATIVE) Urine Urobilinogen 0.2 (0.2-1.0) EU/dL Ur Leukocyte Esterase Trace H (NEGATIVE) Urine RBC Not seen (0-5) /HPF Urine WBC Not seen (0-5) /HPF Meds: Medications Discontinued Medications Generic Name Dose Route Start Last Admin Trade Name Freq PRN Reason Stop Dose Admin Tramadol HCl 1 packet 05/28/17 20:02 Take Home: Tramadol 50 Mg, 4 Tab Pack PO 05/28/17 20:03 ONETIME ONE Departure - Departure Time of Disposition: 20:03 Disposition: Home, Self-Care 01 Condition: Good Clinical Impression: Acute Crohn's disease Qualifiers: Digestive disease complication type: without complication Qualified Code(s): K50.90 - Crohn's disease, unspecified, without complications - Discharge Information Referrals: Provider,Unknown [Primary Care Provider] - Forms: ED Department Discharge Additional Instructions: Call GI doctor in the AM for further follow up Push fluids as much as possible Tramadol take 1 tablet every 6 hours as needed for pain Continue with the zofran for the nausea Recheck if pain gets worse or changes. - Problem List & Annotations (1) Acute Crohn's disease SNOMED Code(s): 43072127 Code(s): K50.90 - CROHN'S DISEASE, UNSPECIFIED, WITHOUT COMPLICATIONS Status: Acute Priority: High Current Visit: Yes Qualifiers: Digestive disease complication type: without complication Qualified Code(s) : K50.90 - Crohn's disease, unspecified, without complications - Problem List Review Problem List Initiated/Reviewed/Updated: Yes
== END 2017-05-28 20:15 | disposition home or self-care (01) ==
LOC: CC.ED 19:05
DX: K50.90 Crohn's disease, unspecified, without complications (principal); F17.210 Nicotine dependence, cigarettes, uncomplicated; Z88.6 Allergy status to analgesic agent; Z88.8 Allergy status to other drugs, medicaments and biological substances; Z79.899 Other long term (current) drug therapy
CPT/HCPCS: 36415; 80048; 81001; 85025; 99283; A9270-GY

== ENCOUNTER 2018-01-17 16:51 | Emergency (ER) | payer BC ==
[2018-01-17 16:59] VITALS: BP 143/81
--- NOTE | 2018-01-17 18:04 | EDM.PDOC ---
ED HPI GENERAL MEDICAL PROBLEM - General Chief Complaint: General Stated Complaint: bloody stool, pain Time Seen by Provider: 01/17/18 17:10 Source of Information: Reports: Patient History Limitations: Reports: No Limitations - History of Present Illness INITIAL COMMENTS - FREE TEXT/NARRATIVE: States that she had some lower abdominal pressure and pain and then felt she had a twisting feeling in her lower abdomen. She then felt that she had to go to the bathroom and had a bloody stool that was like her crohn's stool. It was small formed stool with it. Her cramping is less. Onset: Today Location: Reports: Abdomen Quality: Reports: Dull Associated Symptoms: Denies: Fever/Chills Lower Abdomen Pain Score (Numeric/FACES): 7 - Related Data Allergies Allergy/AdvReac Type Severity Reaction Status Date / Time diphenhydramine Allergy Hives Verified 01/17/18 16:52 [From Benadryl] ketorolac [From Toradol] Allergy Irritabilit Verified 01/17/18 16:52 y Home Meds: Home Meds Ferrous Sulfate [Iron] 325 mg PO TID 12/08/16 [History] rOPINIRole HCl [Requip] 1 mg PO BEDTIME 12/08/16 [History] Ondansetron [Zofran ODT] 4 mg PO Q4H PRN 05/28/17 [History] predniSONE [Prednisone] 25 mg PO DAILY 01/17/18 [History] traMADol [Ultram] 50 mg PO Q6H PRN 01/17/18 [History] Past Medical History 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 History: Reports: Bowel Obstruction, Inflammatory Bowel Disease , PUD, Other (See Below) Other 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 History: CHROHNS Genitourinary History: Reports: None 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, Polycystic 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, Musculoskeletal History: Reports: None Neurological History: Reports: None Psychiatric History: Reports: Anxiety Endocrine/Metabolic History: Reports: Other (See Below) Hematologic History: Reports: Iron Deficiency - Past Surgical History GI Surgical History: Reports: Appendectomy, Cholecystectomy, Other (See Below) Other GI Surgeries/Procedures: BOWEL RESECTIONS X2, GASTRIC BYPASS Social & Family History - Family History Family Medical History: Noncontributory - Tobacco Use Smoking Status *Q: Current Some Day Smoker Years of Tobacco use: 20 Packs/Tins Daily: 1 - Caffeine Use Caffeine Use: Reports: Coffee - Living Situation & Occupation Occupation: Employed ED ROS GENERAL - Review of Systems Review Of Systems: See Below Constitutional: Denies: Fever, Chills Respiratory: Reports: No Symptoms Cardiovascular: Reports: No Symptoms GI/Abdominal: Reports: Abdominal Pain, Hematochezia : Reports: No Symptoms Skin: Reports: No Symptoms ED EXAM, GENERAL - Physical Exam Exam: See Below Exam Limited By: No Limitations General Appearance: Alert, WD/WN, Mild Distress Ears: Normal External Exam, Normal Canal, Normal TMs Nose: Normal Inspection Throat/Mouth: Normal Inspection, Normal Oropharynx Head: Atraumatic, Normocephalic Neck: Normal Inspection, Supple, Non-Tender, Full Range of Motion Respiratory/Chest: No Respiratory Distress, Lungs Clear, Normal Breath Sounds Cardiovascular: Regular Rate, Rhythm GI/Abdominal: Normal Bowel Sounds, Soft, Tender (to the right lower quadrant), Other (rectal exam showed soft brown stool that is hemoccult negative) (Female) Exam: Normal External Exam, Normal Bimanual Exam (No blood noted on vaginal exam.) Extremities: Normal Inspection, No Pedal Edema, Normal Capillary Refill Neurological: Alert, Oriented Skin Exam: Warm, Dry, Intact Course - Vital Signs Last Recorded V/S: Last Vital Signs Temp 97.2 F 01/17/18 16:55 Pulse 75 01/17/18 16:55 Resp 20 01/17/18 16:55 BP 143/81 H 01/17/18 16:55 Pulse Ox 96 01/17/18 16:55 - Orders/Labs/Meds Orders: Active Orders 24 hr Category Date Time Status Abdomen 2V AP Flat Upright [CR] Stat Exams 01/17/18 17:12 Taken UA W/MICROSCOPIC [URIN] Stat Lab 01/17/18 17:45 Ordered Labs: Laboratory Tests 01/17/18 01/17/18 01/17/18 Range/Units 17:25 17:25 17:45 WBC 15.2 H (5.0-10.0) 10^3/uL RBC 4.76 (4.00-5.50) 10^6/uL Hgb 11.9 L (12.0-16.0) g/dL Hct 37.2 (37.0-47.0) % MCV 78.2 L (82.0-94.0) fL MCH 25.0 L (27.0-32.0) pg MCHC 32.0 L (33.0-38.0) g/dL RDW Coeff of Jessa 17.5 H (11.0-15.0) % Plt Count 373 (150-400) 10^3/uL Neut % (Auto) 88.6 H (35-85) % Lymph % (Auto) 9.5 L (10-55) % [place] % (Auto) 1.5 (0-16) % Eos % (Auto) 0.1 (0-5) % Baso % (Auto) 0.3 (0-3) % Neut # (Auto) 13.50 H (1.80-7.00) 10^3/uL Lymph # (Auto) 1.44 (1.00-4.80) 10^3/uL [place] # (Auto) 0.23 (0.00-0.80) 10^3/uL Eos # (Auto) 0.02 (0.00-0.45) 10^3/uL Baso # (Auto) 0.04 10^3/uL C-Reactive Protein 0.6 (0.2-0.8) mg/dL Urine Color Light yellow (YELLOW) Urine Appearance Clear (CLEAR) Urine pH 7.0 (4.5-8.0) Ur Specific [place] 1.010 (1.003-1.020) Urine Protein Negative (NEGATIVE) mg/dL Urine Glucose (UA) Negative (NEGATIVE) mg/dL Urine Ketones Negative (NEGATIVE) mg/dL Urine Occult Blood Negative (NEGATIVE) Urine Nitrite Negative (NEGATIVE) Urine Bilirubin Negative (NEGATIVE) Urine Urobilinogen 0.2 (0.2-1.0) EU/dL Ur Leukocyte Esterase Negative (NEGATIVE) Urine RBC Not seen (0-5) /HPF Urine WBC Not seen (0-5) /HPF - Re-Assessments/Exams Free Text/Narrative Re-Assessment/Exam: 01/17/18 18:00In to discuss normal lab, with negative occult blood stool and normal vaginal exam that did not have any blood noted. Unable to explain where the blood may have come from as her occult blood is negative. Pt voices understanding of the above. Departure - Departure Time of Disposition: 17:59 Disposition: Home, Self-Care 01 Condition: Good Clinical Impression: Abdominal pain - Discharge Information *PRESCRIPTION DRUG MONITORING PROGRAM REVIEWED*: Not Applicable *COPY OF PRESCRIPTION DRUG MONITORING REPORT IN PATIENT DARA: Not Applicable Additional Instructions: May return to work Push fluids s much as possible Recheck if new concerns. - Problem List & Annotations (1) Abdominal pain SNOMED Code(s): 86945590 Code(s): R10.9 - UNSPECIFIED ABDOMINAL PAIN Status: Acute - Problem List Review Problem List Initiated/Reviewed/Updated: Yes - My Orders Last 24 Hours: My Active Orders 01/17/18 17:12 Abdomen 2V AP Flat Upright [CR] Stat 01/17/18 17:45 UA W/MICROSCOPIC [URIN] Stat - Assessment/Plan Last 24 Hours: My Active Orders 01/17/18 17:12 Abdomen 2V AP Flat Upright [CR] Stat 01/17/18 17:45 UA W/MICROSCOPIC [URIN] Stat
== END 2018-01-17 18:10 | disposition home or self-care (01) ==
LOC: CC.ED 16:51
DX: R10.31 Right lower quadrant pain (principal); F17.210 Nicotine dependence, cigarettes, uncomplicated; Z88.8 Allergy status to other drugs, medicaments and biological substances; Z79.899 Other long term (current) drug therapy
CPT/HCPCS: 36415; 74019; 81001; 85025; 86140; 99284

== ENCOUNTER 2018-07-09 17:00 | Emergency (ER) | payer BC, MEDICAID ==
[2018-07-09 18:04] LABS: CHLORIDE,CL 100 mEq/L (98-106); SODIUM,NA 137 mEq/L (136-145)
--- NOTE | 2018-07-09 18:09 | EDM.PDOC ---
ED HPI GENERAL MEDICAL PROBLEM - General Chief Complaint: Back Pain or Injury Stated Complaint: "I have pain in my shoulders and back" Time Seen by Provider: 07/09/18 17:24 Source of Information: Reports: Patient History Limitations: Reports: No Limitations - History of Present Illness INITIAL COMMENTS - FREE TEXT/NARRATIVE: States that she started with indigestion and heartburn that she took mylanta and tums for this morning and it did help some. Has now progressed to having upper abdominal pain that radiates into the right shoulder area and into mid back. Has been having a flare up of crohns recently and was started on Budesinide that has given her pancreatitis in the past. She did have a normal BM this morning. Has not had any diarrhea. Pain is the worst in the midsternal area and then to the right side. Has been taking advil for hip pain and ate enchiladas last night for supper. Onset: Today Location: Reports: Chest, Abdomen, Back Associated Symptoms: Reports: Chest Pain, Nausea/Vomiting Shoulder Pain Score (Numeric/FACES): 7 - Related Data Allergies Allergy/AdvReac Type Severity Reaction Status Date / Time diphenhydramine Allergy Hives Verified 07/09/18 17:48 [From Benadryl] ketorolac [From Toradol] Allergy Irritabilit Verified 07/09/18 17:48 y Home Meds: Home Meds Ferrous Sulfate [Iron] 325 mg PO TID 12/08/16 [History] rOPINIRole HCl [Requip] 1 mg PO BEDTIME 12/08/16 [History] Ondansetron [Zofran ODT] 4 mg PO Q4H PRN 05/28/17 [History] predniSONE [Prednisone] 25 mg PO DAILY 01/17/18 [History] traMADol [Ultram] 50 mg PO Q6H PRN 01/17/18 [History] Past Medical History 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 History: Reports: Bowel Obstruction, Inflammatory Bowel Disease , PUD, Other (See Below) Other 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 History: CHROHNS Genitourinary History: Reports: None 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 MANAGER History: Reports: 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, Polycystic Ovaries, Musculoskeletal History: Reports: None Neurological History: Reports: None Psychiatric History: Reports: Anxiety Endocrine/Metabolic History: Reports: Other (See Below) Hematologic History: Reports: Iron Deficiency - Past Surgical History GI Surgical History: Reports: Appendectomy, Cholecystectomy, Other (See Below) Other GI Surgeries/Procedures: BOWEL RESECTIONS X2, GASTRIC BYPASS Social & Family History - Family History Family Medical History: Noncontributory - Caffeine Use Caffeine Use: Reports: Coffee - Living Situation & Occupation Occupation: Employed ED ROS GENERAL - Review of Systems Review Of Systems: See Below Constitutional: Reports: No Symptoms HEENT: Reports: No Symptoms Respiratory: Reports: No Symptoms Cardiovascular: Reports: No Symptoms GI/Abdominal: Reports: Abdominal Pain. Denies: Diarrhea : Reports: No Symptoms Musculoskeletal: Reports: No Symptoms Skin: Reports: No Symptoms Neurological: Reports: No Symptoms ED EXAM, GI/ABD - Physical Exam Exam: See Below Exam Limited By: No Limitations General Appearance: Alert, WD/WN, Moderate Distress Eyes: Bilateral: Normal Appearance Ears: Normal External Exam, Normal Canal, Normal TMs Nose: Normal Inspection Throat/Mouth: Normal Inspection, Normal Oropharynx Head: Atraumatic, Normocephalic Neck: Normal Inspection, Supple, Non-Tender Respiratory/Chest: No Respiratory Distress, Lungs Clear, Normal Breath Sounds Cardiovascular: Regular Rate, Rhythm, No Edema GI/Abdominal Exam: Normal Bowel Sounds, Soft, Tender (diffusely with palpation) . No: Guarding, Rigid, Rebound Extremities: Normal Inspection, Normal Capillary Refill Neurological: Alert, Oriented Skin Exam: Warm, Dry, Intact Course - Vital Signs Last Recorded V/S: Last Vital Signs Temp 98.9 F 07/09/18 17:25 Pulse 68 07/09/18 17:25 Resp 20 07/09/18 17:25 BP 130/78 07/09/18 17:25 Pulse Ox 99 07/09/18 17:25 - Orders/Labs/Meds Orders: Active Orders 24 hr Category Date Time Status Abdomen 2V AP Flat Upright [CR] Stat Exams 07/09/18 17:59 Taken Labs: Laboratory Tests 07/09/18 07/09/18 07/09/18 Range/Units 17:46 17:46 17:46 WBC 12.2 H (5.0-10.0) 10^3/uL RBC 4.73 (4.00-5.50) 10^6/uL Hgb 12.0 (12.0-16.0) g/dL Hct 37.9 (37.0-47.0) % MCV 80.1 L (82.0-94.0) fL MCH 25.4 L (27.0-32.0) pg MCHC 31.7 L (33.0-38.0) g/dL RDW Coeff of Jessa 16.6 H (11.0-15.0) % Plt Count 325 (150-400) 10^3/uL Neut % (Auto) 57.4 (35-85) % Lymph % (Auto) 32.9 (10-55) % [place] % (Auto) 8.4 (0-16) % Eos % (Auto) 1.1 (0-5) % Baso % (Auto) 0.2 (0-3) % Neut # (Auto) 7.00 (1.80-7.00) 10^3/uL Lymph # (Auto) 4.00 (1.00-4.80) 10^3/uL [place] # (Auto) 1.02 H (0.00-0.80) 10^3/uL Eos # (Auto) 0.13 (0.00-0.45) 10^3/uL Baso # (Auto) 0.02 10^3/uL Sodium 137 (136-145) mEq/L Potassium 4.4 (3.5-5.0) mEq/L Chloride 100 (98-106) mEq/L Carbon Dioxide 30 (21-32) mmol/L BUN 13 (7-18) mg/dL Creatinine 0.7 (0.6-1.0) mg/dL Est Cr Clr Drug Dosing 87.64 mL/min Estimated GFR (MDRD) > 60 (>=60) mL/min Glucose 103 H (75-99) mg/dL Calcium 9.0 (8.4-10.1) mg/dL Total Bilirubin 0.2 (0.0-1.0) mg/dL AST 20 (15-37) U/L ALT 22 (12-78) U/L Alkaline Phosphatase 91 (46-116) U/L Lactate Dehydrogenase 164 (100-190) U/L Creatine Kinase 77 (21-215) U/L Troponin I < 0.017 (0.00-0.06) ng/mL C-Reactive Protein < 0.2 L (0.2-0.8) mg/dL Total Protein 7.6 (6.4-8.2) g/dL Albumin 3.5 (3.4-5.0) g/dL Amylase 36 (25-115) U/L Urine Color Yellow (YELLOW) Urine Appearance Clear (CLEAR) Urine pH 7.0 (4.5-8.0) Ur Specific [place] 1.015 (1.003-1.020) Urine Protein Negative (NEGATIVE) mg/dL Urine Glucose (UA) Negative (NEGATIVE) mg/dL Urine Ketones Negative (NEGATIVE) mg/dL Urine Occult Blood Negative (NEGATIVE) Urine Nitrite Negative (NEGATIVE) Urine Bilirubin Negative (NEGATIVE) Urine Urobilinogen 0.2 (0.2-1.0) EU/dL Ur Leukocyte Esterase Negative (NEGATIVE) Urine RBC Not seen (0-5) /HPF Urine WBC Not seen (0-5) /HPF Ur Epithelial Cells Occasional H (NOT SEEN) /HPF Meds: Medications Discontinued Medications Generic Name Dose Route Start Last Admin Trade Name Freq PRN Reason Stop Dose Admin Al Hydroxide/Mg Hydroxide 30 0 ml 07/09/18 18:21 07/09/18 18:31 ml/ Lidocaine HCl 15 ml PO 07/09/18 18:22 45 ml ONETIME ONE Administration Hydromorphone HCl 1 mg 07/09/18 18:11 07/09/18 18:23 Dilaudid IM 07/09/18 18:12 1 mg ONETIME ONE Administration Ondansetron HCl 4 mg 07/09/18 18:25 07/09/18 18:29 Zofran Odt PO 07/09/18 18:26 4 mg ONETIME ONE Administration - Re-Assessments/Exams Free Text/Narrative Re-Assessment/Exam: 07/09/18 4215 Pain is relieved after GI cocktail was given. Will discharge to home as pain is significantly better. Pt voices understanding of lab results. Departure - Departure Time of Disposition: 18:49 Disposition: Home, Self-Care 01 Condition: Good Clinical Impression: GERD (gastroesophageal reflux disease) - Discharge Information *PRESCRIPTION DRUG MONITORING PROGRAM REVIEWED*: No *COPY OF PRESCRIPTION DRUG MONITORING REPORT IN PATIENT DARA: No Instructions: Food Choices for Gastroesophageal Reflux Disease, Adult, Easy-to- Read, Gastroesophageal Reflux Disease, Adult, [id number] Forms: ED Department Discharge Additional Instructions: Avoid any spicy foods Do not take any further ibuprofen Tylenol if needed for pain Continue on the prilosec twice a day Follow up with Primary MD if pain reoccurs or continues to occur. - Problem List & Annotations (1) GERD (gastroesophageal reflux disease) SNOMED Code(s): 411447782 Code(s): K21.9 - GASTRO-ESOPHAGEAL REFLUX DISEASE WITHOUT ESOPHAGITIS Status: Acute Qualifiers: Esophagitis presence: without esophagitis Qualified Code(s): K21.9 - Gastro -esophageal reflux disease without esophagitis - Problem List Review Problem List Initiated/Reviewed/Updated: Yes - My Orders Last 24 Hours: My Active Orders 07/09/18 17:59 Abdomen 2V AP Flat Upright [CR] Stat - Assessment/Plan Last 24 Hours: My Active Orders 07/09/18 17:59 Abdomen 2V AP Flat Upright [CR] Stat
[2018-07-09] MEDS: HYDROmorphone 1 MG/ML Syringe IM ONE (18:23)
[2018-07-09] MEDS: Ondansetron 4 MG Tab.DIS PO ONE (18:29)
[2018-07-09] MEDS: Alum Hydrox/Mag Hydrox/Simeth 30 ML, Lidocaine 2% 15 ML PO ONE ×2 (18:31)
[2018-07-09 18:42] VITALS: BP 130/78
== END 2018-07-09 18:00 | disposition home or self-care (01) ==
LOC: CC.ED 17:00
DX: K21.9 Gastro-esophageal reflux disease without esophagitis (principal); Z90.49 Acquired absence of other specified parts of digestive tract; Z88.6 Allergy status to analgesic agent; Z88.8 Allergy status to other drugs, medicaments and biological substances; Z79.899 Other long term (current) drug therapy
CPT/HCPCS: 36415; 74019; 80053; 81001; 82150; 82550; 83615; 84484; 85025; 86140; 93005; 96374; 99284; A9270-GY; J1170

== ENCOUNTER 2018-11-14 06:39 | Emergency (ER) | payer SELFPAY ==
[2018-11-14] MEDS ORDERED: fentaNYL 100 MCG/2 ML SDV ONE ×2 (06:56→07:08)
[2018-11-14 06:59] VITALS: BP 111/79
[2018-11-14] MEDS ORDERED: fentaNYL 100 MCG/2 ML SDV IVPUSH ONE ×2 (07:10→07:24)
[2018-11-14] MEDS ORDERED: Iopamidol 612 MG/ML 100 ML Bottle IVPUSH ONE (07:12)
[2018-11-14 07:31] LABS: CHLORIDE,CL 104 mEq/L (98-106); SODIUM,NA 142 mEq/L (136-145)
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
[2018-11-14] MEDS ORDERED: HYDROmorphone 1 MG/ML Syringe ONE (07:44)
[2018-11-14] MEDS ORDERED: HYDROmorphone 1 MG/ML Syringe IVPUSH ONE ×2 (07:59→08:56)
[2018-11-14] MEDS ORDERED: Sodium Chloride 0.9% 1,000 ML IV ONE (08:43)
[2018-11-14] MEDS ORDERED: Ondansetron 4 MG/2 ML SDV IVPUSH ONE (09:11)
== END 2018-11-14 09:55 ==
LOC: CC.ED 06:39
DX: S22.41XA Multiple fractures of ribs, right side, initial encounter for closed fracture (principal); S22.008A Other fracture of unspecified thoracic vertebra, initial encounter for closed fracture; F41.9 Anxiety disorder, unspecified; Z88.6 Allergy status to analgesic agent; Z88.8 Allergy status to other drugs, medicaments and biological substances; Z79.899 Other long term (current) drug therapy; Y08.89XA Assault by other specified means, initial encounter
CPT/HCPCS: 36415; 70450; 70486; 71260; 72125; 73100-LT; 73560-LT; 74177; 80053; 80305-QW; 81001; 82150; 85025; 85610; 96361; 96374; 96375; 96376; 99285-25; G0480; J1170; J2405; J3010; J7030; Q9967